=== PATIENT | female | born 1990 | race Hispanic/Latino ===

== ENCOUNTER → 2017-11-29 | Day surgery (SDC) | payer OTHER ==
[~2017-11-29] MED LIST: MOTRIN 800MG T800 MG PO; PERCOCET 325 MG1 TA2 PO
[2017-11-29 10:04] LABS: ABSOLUTE BASOPHIL COUNT 0 /CUMM (0.0-0.2); ABSOLUTE EOSINOPHIL COUNT 0.1 /CUMM (0.0-0.7); ABSOLUTE LYMPH COUNT 1.8 /CUMM (1.2-3.4); ABSOLUTE MONOCYTE COUNT 0.3 /CUMM (0.10-0.60); BASOPHIL % 0.9 % (0.0-2.0); EOSINOPHIL % 1.9 % (0-5); GRANULOCYTE % 47.5 % (42.2-75.2); HEMATOCRIT 43.2 % (37-47); MEAN CORPUSCULAR HGB 30.5 PG (27.0-31.0); MEAN CORPUSCULAR HGB CONC 34.2 G/DL (33.0-37.0); MEAN CORPUSCULAR VOLUME 89.2 FL (81.0-99.0); PLATELET COUNT 219 /CUMM (130-400); RBC DISTRIBUTION WIDTH 12.9 % (11.5-14.5); RED BLOOD CELL CT 4.84 /CUMM (4.20-5.40); WHITE BLOOD CELL COUNT 4.3 /CUMM (4.8-10.8)
[2017-11-29 10:14] LABS: PT 10.5 SEC (9.4-12.5); PTT 31 SEC (25-37)
--- NOTE | 2017-12-04 12:16 | Operative Report ---
Operative/Inv Procedure Report Surgery Date: 11/29/17 Name of Procedure: Laparoscopic tubal sterilization Pre-Operative Diagnosis: Multiparity Post-Operative Diagnosis: Same Estimated Blood Loss: scant (MINIMAL), less than 50ml Surgeon/Volunteer Services Coordinator: Herrera JIN,Miryam Burden Anesthesia: general endotracheal tube Operative/Procedure Note Note: Procedure note patient was taken the operating room placed on position after adequate induction of general anesthesia via endotracheal tube patient placed in dorsolithotomy position the vagina prepped after fashion bladder was catheterized using Richter Brian cannula was left in place surgeon regowned and gloved at the level of the umbilicus a stab incision was made to allow for the entry of Veress needle the M was insufflated possibly fully Z CO2 to liver edge dullness at which point the Veress needle was removed a 10 mm trocar was inserted atraumatically the umbilicus through that sheath a laparoscope placed under direct visualization a 5 mm trocar was placed 2 fingerbreadths of symptoms pubis in the midline patient tolerated that well. Through that port a Kleppinger was placed the right tube was picked up carried to its fimbriated end partially 7 cm that tube was Bovie coagulated the left tube was picked up carried to its fimbriated end possibly 7 cm that tube Bovie quite patient tolerated that well I at the end the case all instruments removed from the abdomen as well as maximal CO2 patient hard that well I the incision at the umbilicus was oversewn using 0 for the fascia 3 over the skin incisions Marcaine was injected underneath both skin incisions patient tolerated that well the Brian cannula was moved the Richter was removed patient was returned spine position counts correct all intimates removed from the vagina the patient was awakened from anesthesia and transferred room awake alert counts correct Findings: Uterus is slightly enlarged ovaries are normal tubes are normal otherwise normal anatomy adhesions noted from previous sections
== END ==
LOC: STS 01:58
PROVIDERS: Specialist
DX: Z30.2 Encounter for sterilization (principal); K66.0 Peritoneal adhesions (postprocedural) (postinfection)
CPT/HCPCS: 36415; 81025; J2250; J2405